=== PATIENT | female | born 1940 | race Caucasian/White ===

== ENCOUNTER 2017-07-10 06:01 | Day surgery (SDC) | payer MEDICARE, OTHER ==
[2017-07-09 16:03] LABS: BASOPHILS % (AUTO) 0.5 % (0-1); EOSINOPHILS # (AUTO) 0.2 X10'3 (0-0.9); EOSINOPHILS % (AUTO) 2.8 % (0-6); HEMATOCRIT 41.2 % (35.0-45.0); LYMPHOCYTES # (AUTO) 3.3 X10'3 (1.1-4.8); LYMPHOCYTES % (AUTO) 41.6 % (21-51); MEAN CORPUSCULAR VOLUME 88.3 FL (78-98); MEAN PLATELET VOLUME 6.8 FL (7.4-10.4); MONOCYTES # (AUTO) 0.7 X10'3 (0-0.9); MONOCYTES % (AUTO) 8.3 % (2-12); NEUTROPHILS # (AUTO) 3.7 X10'3 (1.8-7.7); NEUTROPHILS % (AUTO) 46.8 % (42-75); PLATELET COUNT 218 X10'3 (140-440); RED BLOOD COUNT 4.66 X10'6 (4.20-5.60); RED CELL DISTRIBUTION WIDTH 14.3 % (11.5-14.5); WHITE BLOOD COUNT 7.9 X10'3 (4.5-11.0)
[2017-07-09 16:11] LABS: INR 1.1 INR; PARTIAL THROMBOPLASTIN TIME 28 SECONDS (22-32); PROTHROMBIN TIME 11.4 SECONDS (9.0-12.0)
[2017-07-09 16:13] LABS: ALBUMIN 3.4 G/DL (3.4-5.0); ANION GAP 8 (8-16); BLOOD UREA NITROGEN 19 MG/DL (7-18); BUN/CREATININE RATIO 20.7 (6.6-38.0); CALCIUM 9.1 MG/DL (8.5-10.1); CHLORIDE 103 MMOL/L (99-107); CREATININE 0.92 MG/DL (0.40-0.90); GLUCOSE 97 MG/DL (70-104); POTASSIUM 4.1 MMOL/L (3.5-5.1); SODIUM 139 MMOL/L (135-145); TOTAL CARBON DIOXIDE 28.5 MMOL/L (24-32); eGFR 59 ML/MIN
[~2017-07-10] VITALS: Ht 172.7 cm; Wt 62.9 kg
[2017-07-10] VITALS (16 sets, daily range): BP systolic 111–153; BP diastolic 51–83
[~2017-07-10 06:01] MED LIST: ASPI-1264 PO; BECL8.7A7 INH; CALC-988 PO; DULO-31 PO; ESCI10TA54 PO; FLEC100T PO; FLEC50TA10 PO; GLUC1CAP32 PO; LEVO50TA67 PO; LEVO50TA8 PO; LORA-512 PO; MULT-785 PO; ROSU20TA PO
[2017-07-10] MEDS ORDERED: ceFAZolin 1GM/D5W- ADD-VANTAGE 50 ML IV ONE ×2 (06:22→08:56)
[2017-07-10] MEDS ORDERED: RIVA20TA PO (06:25)
[2017-07-10] MEDS ORDERED: normal saline 1000ml 1,000 ML IV SCH (06:25)
[2017-07-10] MEDS ORDERED: SOTA80TA10 PO (06:25)
[2017-07-10] MEDS ORDERED: fentaNYL/PF 50MCG/1 ML 2ML syringe ONE (08:55)
[2017-07-10] MEDS ORDERED: midazolam 2 mg/2 ml injection ONE (08:55)
[2017-07-10] MEDS ORDERED: ceFAZolin 1000mg inj ONE (08:55)
[2017-07-10] MEDS ORDERED: HYDROcodone/acetaminophen 10/325mg tab PO PRN (10:55)
[2017-07-10] MEDS ORDERED: normal saline 1000ml 1,000 ML IV ONE (11:00)
[2017-07-10] MEDS: HYDROcodone/acetaminophen 5mg/325mg tablet PO PRN ×2 (11:54→15:51)
[2017-07-10] MEDS ORDERED: sod chloride 0.9% 10ml flush syringe IV SCH (16:00)
[2017-07-10] MEDS ORDERED: ceFAZolin 1GM/D5W- ADD-VANTAGE 50 ML IV SCH (17:00)
== END 2017-07-10 18:10 | disposition home or self-care (01) ==
LOC: SSTAY O 06:01
PROVIDERS: ATTEND Internal Medicine Cardiovascular Disease
DX: I49.5 Sick sinus syndrome (principal); E78.5 Hyperlipidemia, unspecified; I48.0 Paroxysmal atrial fibrillation; J44.9 Chronic obstructive pulmonary disease, unspecified; N95.8 Other specified menopausal and perimenopausal disorders; F32.9 Major depressive disorder, single episode, unspecified; E03.9 Hypothyroidism, unspecified; Z87.891 Personal history of nicotine dependence; Z90.89 Acquired absence of other organs; Z79.899 Other long term (current) drug therapy; Z98.890 Other specified postprocedural states
CPT/HCPCS: 33208; 36415; 71046; 80048; 85025; 85610; 85730; 93005; 99152; 99153; C1785; C1894; C1898; J0690; J2250; J3010; J7030; A4620

== ENCOUNTER 2021-10-26 16:18 | Emergency (ER) | payer MEDICARE, OTHER ==
[~2021-10-26] VITALS: Ht 162.6 cm; Wt 68.0 kg
[~2021-10-26 16:18] MED LIST changes: -ASPI-1264 PO; -BECL8.7A7 INH; -CALC-988 PO; -ESCI10TA54 PO; -FLEC100T PO; -FLEC50TA10 PO; -GLUC1CAP32 PO; -LEVO50TA8 PO; -LORA-512 PO; -MULT-785 PO; +RIVA20TA PO; -ROSU20TA PO; +ROSU20TA2 PO; +SOTA80TA10 PO
[2021-10-26 16:51] LABS: BASOPHILS % (AUTO) 0.7 % (0-1); EOSINOPHILS # (AUTO) 0.1 X10'3 (0-0.9); EOSINOPHILS % (AUTO) 2.2 % (0-6); HEMATOCRIT 29.7 % (35.0-45.0); HEMOGLOBIN 10.1 g/dl (12.0-16.0); LYMPHOCYTES # (AUTO) 2.7 X10'3 (1.1-4.8); LYMPHOCYTES % (AUTO) 51.3 % (21-51); MEAN CORPUSCULAR HEMOGLOBIN 30.4 PG (27.0-31.0); MEAN CORPUSCULAR HGB CONC 34.1 g/dL (33.0-36.5); MEAN CORPUSCULAR VOLUME 89.1 FL (78-98); MEAN PLATELET VOLUME 7.2 FL (7.4-10.4); MONOCYTES # (AUTO) 0.5 X10'3 (0-0.9); MONOCYTES % (AUTO) 10.2 % (2-12); NEUTROPHILS # (AUTO) 1.9 X10'3 (1.8-7.7); NEUTROPHILS % (AUTO) 35.6 % (42-75); PLATELET COUNT 171 X10'3 (140-440); RED BLOOD COUNT 3.33 X10'6 (4.20-5.60); RED CELL DISTRIBUTION WIDTH 14.9 % (11.5-14.5); WHITE BLOOD COUNT 5.2 X10'3 (4.5-11.0)
[2021-10-26 17:06] LABS: ALANINE AMINOTRANSFERASE 13 U/L (12-78); ALBUMIN 2.6 G/DL (3.4-5.0); ALBUMIN/GLOBULIN RATIO 1.1 (1.1-1.5); ALKALINE PHOSPHATASE 33 IU/L (46-116); ANION GAP 6 (8-16); ASPARTATE AMINO TRANSFERASE 12 U/L (10-37); BILIRUBIN,TOTAL 0.3 MG/DL (0.1-1.0); BLOOD UREA NITROGEN 27 MG/DL (7-18); BUN/CREATININE RATIO 37.5 (6.6-38.0); CALCIUM 7.4 MG/DL (8.5-10.1); CHLORIDE 112 MMOL/L (99-107); CREATININE 0.72 MG/DL (0.40-0.90); GLUCOSE 90 MG/DL (70-104); POTASSIUM 3.3 MMOL/L (3.5-5.1); SODIUM 143 MMOL/L (135-145); TOTAL PROTEIN 4.9 G/DL (6.4-8.2); eGFR 78 ML/MIN
[2021-10-26 17:20] LABS: BURR CELLS FEW; ELLIPTOCYTES FEW; LARGE PLATELETS FEW; PLATELET ESTIMATE NORMAL; TOTAL CELLS COUNTED 100
[2021-10-26] MEDS ORDERED: pantoprazole 40MG/NS 100ML BAG 100 ML IV ONE (18:05)
--- NOTE | 2021-10-26 18:42 | NUR ---
JUAN SIMON [phone]
[2021-10-26 19:08] VITALS: BP 132/75
== END 2021-10-26 19:13 | disposition home or self-care (01) ==
LOC: ER 16:18
DX: D64.9 Anemia, unspecified (principal); I95.9 Hypotension, unspecified; F03.90 Unspecified dementia, unspecified severity, without behavioral disturbance, psychotic disturbance, mood disturbance, and anxiety; J44.9 Chronic obstructive pulmonary disease, unspecified; Z79.01 Long term (current) use of anticoagulants
CPT/HCPCS: 36415; 71045; 80053; 83880; 84484; 85007; 85025; 93005; 96365; 99285; C9113